=== PATIENT | male | born 1960 | race American Indian/Alaskan Native ===

== ENCOUNTER 2021-11-10 02:09 | Emergency (ER) | payer OTHER ==
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
== END 2021-11-10 03:43 ==
LOC: ED 02:09 → EEVIPCON 02:09 → ED 03:43
DX: Z02.89 Encounter for other administrative examinations (principal); V87.7XXA Person injured in collision between other specified motor vehicles (traffic), initial encounter; Y93.89 Activity, other specified; Y92.488 Other paved roadways as the place of occurrence of the external cause; Y99.8 Other external cause status
CPT/HCPCS: 99282